=== PATIENT | male | born 2000 | race Caucasian/White ===

== ENCOUNTER 2022-03-13 21:35 | Emergency (ER) | payer BC, SELFPAY ==
[2022-03-13 21:37] VITALS: BP 121/71; PULSE 73; RESP 16; TEMP 36.4; O2SAT 100; BMI 22.4
[2022-03-13 21:41] VITALS: RESP 22; O2SAT 98; O2SAT 99
--- NOTE | 2022-03-13 21:42 | EKG12_ITS ---
Test Reason : SOB Blood Pressure : / mmHG Vent. Rate : 068 BPM Atrial Rate : 068 BPM P-R Int : 200 ms QRS Dur : 090 ms QT Int : 360 ms P-R-T Axes : 032 076 054 degrees QTc Int : 382 ms Normal sinus rhythm Normal ECG Confirmed by NAI GONZALEZ, EDDA ([id number]), social media editor CHEMO SIMS ([id number]) on 03/15/2022 8:27:41 AM Referred By: NESTOR Confirmed By:EDDA TRIMBLE MD
[2022-03-13 21:58] LABS: Absolute Lymphocyte Count 1.84 X10^3/uL (0.83-4.51); Absolute Neutrophil Count 3.2 X10^3/uL (2.0-7.7); Basophil# 0.01 X10^3/uL; Basophil% 0.2 % (0-1); Eosinophil# 0.17 X10^3/uL; Eosinophils% 2.9 % (0-5); Hematocrit 44.3 % (40-54); Hemoglobin 14.9 g/dL (13.0-16.5); Lymphocyte # 1.84 X10^3/ul (0.83-4.51); Lymphocyte % 30.9 % (19-41); Mean Corp Hgb Conc 33.6 g/dL (32-36); Mean Corpuscular Hgb 28.3 pg (27.0-32.0); Mean Corpuscular Volume 84.2 fL (80-94); Mean Platelet Vol. 8.7 fl (6.2-12.0); Monocyte# 0.66 X10^3/uL; Monocyte% 11.1 % (0-10); NRBC Flagged by Analyzer 0 % (0-5); Neutrophil # 3.22 X10^3/uL (2.7-7.7); Neutrophil % 54.1 % (47-70); Platelet Count 157 K/mm3 (150-450); RBC Distribution Width CV 12.1 % (11.6-14.6); RBC Distribution Width SD 36.8 fl (35.1-43.9); Red Blood Count 5.26 M/mm3 (4.6-6.2)
--- NOTE | 2022-03-13 22:00 | RAD_ITS ---
EXAM: XR CHEST, 1 VIEW CLINICAL INDICATION: SOB TECHNIQUE: Frontal view of the chest. This report was created using [employer] report generation technology. COMPARISON: None. FINDINGS: LUNGS AND PLEURAL SPACES: Unremarkable. No consolidation or edema. No pneumothorax. No effusion. HEART: Unremarkable. Cardiac silhouette not enlarged. MEDIASTINUM: Central airways and mediastinal contour are unremarkable. BONES/JOINTS: Old right clavicle fracture with ORIF. SOFT TISSUES: Unremarkable. RAD/Chest 1 View (Portable) IMPRESSION: No acute findings in the chest. Electronically Signed: Edgard Allison MD at 22:12 EDT ,
[2022-03-13 22:12] LABS: Anion Gap 4 (5-15); BUN 14 mg/dL (7-18); BUN/Creat Ratio 13.2 RATIO (10-20); Calcium,Total 9.2 mg/dL (8.5-10.1); Chloride 104 mmol/L (98-107); Creatinine, Serum 1.06 mg/dL (0.70-1.30); EST Glomerular Filtration Rate 91 mL/min (>60); Est Glom Filt Rate - Afr Amer 110 mL/min (>60); Estimated Creatinine Clearance 113.76 ml/min; Glucose 98 mg/dL (74-106); Potassium 4.1 mmol/L (3.5-5.1); Sodium Level 139 mmol/L (136-145)
[2022-03-13 22:28] VITALS: BP 119/74; PULSE 73; RESP 17; O2SAT 99
[2022-03-13 22:35] VITALS: O2SAT 100
[2022-03-13 23:52] VITALS: BP 124/65; PULSE 70; RESP 20; O2SAT 98
--- NOTE | 2022-03-13 23:53 | EDS_ITS ---
HPI History of Present Illness Chief Complaint: Shortness of Breath Informant: patient Onset/Context/Timing Onset: Weeks (2) Context: sudden, onset and activity on onset (Usually sitting or lying down) Timing: Intermittent Quality: Positive for - (Just cannot catch breath) Current Severity: Gone Maximum Severity: Moderate Worsened by: Lying flat (Sometimes) and other (Sometimes couple hours after meals) Relieved by: Nothing (Nothing in particular) Associated Symptoms Negative for cough Chest Pain: Positive for None Narrative Narrative: Patient with intermittent dyspnea for the last couple weeks. 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 He denies any cough, fevers, chest discomfort, palpitations, but he has had some right side pain with it sometimes but not always. Sometimes he lies down and has trouble breathing until he sits up and then he is fine, with no pain. When he has the discomfort he does not think it is necessarily pleuritic. The pain is not there right now, nor is he having any trouble breathing, but a little earlier he had the worst episode he has had in the past 2 weeks, he states he thought it was getting better and dissipating because he has not had an episode in about a week or so. PE Risk Factors: Positive for Recent travel (But after onset of symptoms and no travel prior to that); Negative for Cancer, OCP + Smoking + > 35, Prior DVT or PE, Recent immobilization or Recent surgery [facility] Medical History (Updated 03/14/22 @ 00:[address] Raza Valerio MD) Hernia Right clavicle fracture Tibia fracture Home Medications pantoprazole 40 mg tablet,delayed release 40 mg PO DAILY #14 tabs 03/14/22 [Rx Last Taken Unknown] Allergy/AdvReac Type Severity Reaction Status Date / Time No Known Allergies Allergy Verified 03/13/22 21:39 Surgical History (Updated 03/13/22 @ 23:[address] Raza Valerio MD) History of orthopedic surgery Social History Smoking Status: Light Smoker (<10/day) ROS ROS ED Constitutional Constitutional ED: Denies chills or fever(s) Eyes Eyes: Denies change in vision or diplopia ENT ENT ED: Denies rhinorrhea or sore throat Cardiovascular Cardiovascular: Reports orthopnea; Denies chest pain, leg edema or palpitations Respiratory/Chest Respiratory/Chest: Reports dyspnea and orthopnea; Denies cough Gastrointestinal Gastrointestinal: Reports abdominal pain and nausea; Denies diarrhea or vomiting Genitourinary Genitourinary ED: Denies dysuria or hematuria Musculoskeletal Musculoskeletal: Denies back pain or neck pain Integumentary Denies abscess or rash Neurologic Neurologic: Denies headache(s), paresthesias or weakness Psychiatric Psychiatric: Denies anxiety or suicidal thoughts EXAM Physical Exam Const Vital Signs: 03/13/22 21:37 03/13/22 21:41 03/13/22 22:28 Temperature 97.5 F L Temperature Source Temporal Pulse Rate 73 73 Respiratory Rate 16 22 H 17 Respiratory Effort Respiratory Depth Respiratory Pattern Blood Pressure 121/71 H 119/74 Blood Pressure Mean 87 89 Pulse Ox 100 98 99 Oxygen Delivery Method Room Air Room Air Room Air 03/13/22 21:41 03/13/22 22:35 03/13/22 23:52 Temperature Temperature Source Pulse Rate 70 Respiratory Rate 20 H Respiratory Effort Short of Breath Respiratory Depth Normal Respiratory Pattern Normal Blood Pressure 124/65 H Blood Pressure Mean 84 Pulse Ox 99 98 Oxygen Delivery Method Room Air Room Air Room Air Positive well nourished and well developed General Appearance ED: well developed and NAD HEENT Reports moist mucous membranes normocephalic and atraumatic Eyes PERRL and EOMs intact bilaterally Neck full ROM and supple Resp normal respiratory effort and clear to auscultation bilaterally Cardio regular rate, regular rhythm and no murmurs Rate: Negative for tachycardic GI non-tender and non-distended Auscultation: normoactive bowel sounds Palpation: soft Back/Spine no CVA tenderness General Back: other FROM Extremity normal to inspection General Extremety ED: Negative for edema, pulses abnormal or tenderness General Extremity: Negative for edema or pulses abnormal Neuro oriented x3, CN's II-XII intact bilaterally and no sensory deficits noted Sensorium / Orientation: awake and alert Motor Exam: strength 5/5 throughout Skin no rashes or lesions noted and no wounds MDM MDM MDM Narrative Medical decision making narrative: Patient was asymptomatic during his stay here and work-up. I did a bedside ultrasound of his gallbladder, it was contracted, and nontender with a negative sonographic Chang's. Also, his right kidney appears normal without any hydronephrosis. In further discussion with him, with the severe episode that he had tonight of this, he was driving on the way to get something to eat when he started feeling dyspneic and having some of this right upper quadrant/flank pain, it subsided enough that he felt okay to eat, and then after he got done eating he came here to the emergency department, and the discomfort subsided, and did not return. This explains why his gallbladder is contracted since he had just eaten, and it makes biliary colic much less likely since it is contracted without any obvious shadowing stones and he has no pain or tenderness there. Given all of this, in addition to negative liver enzymes, lipase, D- dimer, and on my interpretation his 1-view chest x-ray is normal showing no effusion or any other acute abnormality, with radiology in agreement, and no symptoms of dysrhythmias, I am comfortable discharging him home and we will try prescription for 2 weeks of a PPI given his history of triggering this with lying down. Lab Data Attestation: I reviewed the patient's lab results. Labs: Laboratory Results - last 24 hr 03/13/22 03/13/22 03/13/22 21:50 21:50 23:58 WBC 6.0 RBC 5.26 Hgb 14.9 Hct 44.3 MCV 84.2 MCH 28.3 MCHC 33.6 RDW Std Deviation 36.8 RDW Coeff of Guillermina 12.1 Plt Count 157 MPV 8.7 Immature Gran % (Auto) 0.800 Neut % (Auto) 54.1 Lymph % (Auto) 30.9 Darke % (Auto) 11.1 H Eos % (Auto) 2.9 Baso % (Auto) 0.2 Absolute Neuts (auto) 3.2 Absolute Lymphs (auto) 1.84 Nucleated RBC % 0 D-Dimer Quant (PE/DVT) Sodium 139 Potassium 4.1 Chloride 104 Carbon Dioxide 31.0 Anion Gap 4 L BUN 14 Creatinine 1.06 Estim Creat Clear Calc 113.76 Est GFR (MDRD) Af Amer 110 Est GFR (MDRD) Non-Af 91 BUN/Creatinine Ratio 13.2 Glucose 98 Calcium 9.2 Total Bilirubin Direct Bilirubin AST ALT Alkaline Phosphatase Total Protein Albumin Globulin Lipase 155 03/13/22 03/13/22 23:58 23:58 WBC RBC Hgb Hct MCV MCH MCHC RDW Std Deviation RDW Coeff of Guillermina Plt Count MPV Immature Gran % (Auto) Neut % (Auto) Lymph % (Auto) Darke % (Auto) Eos % (Auto) Baso % (Auto) Absolute Neuts (auto) Absolute Lymphs (auto) Nucleated RBC % D-Dimer Quant (PE/DVT) < 0.27 L Sodium Potassium Chloride Carbon Dioxide Anion Gap BUN Creatinine Estim Creat Clear Calc Est GFR (MDRD) Af Amer Est GFR (MDRD) Non-Af BUN/Creatinine Ratio Glucose Calcium Total Bilirubin 0.60 Direct Bilirubin 0.19 AST 22 ALT 36 Alkaline Phosphatase 78 Total Protein 6.5 Albumin 3.8 Globulin 2.7 Lipase Radiography Chest X-Ray - ED: 1 View, Read by ED Physician, No Acute Disease and No Infiltrates Diagnostic Testing: Clinical Impression(s) from Imaging Studies Chest X-Ray 03/13/22 22:00 IMPRESSION: No acute findings in the chest. Electronically Signed: Edgard Allison MD at 22:12 EDT , Rhythm Strip Rhythm Strip: Sinus Rhythm Rate: 65 Ectopy: None EKG Initial EKG: Attestation: I personally reviewed and interpreted this EKG as follows: Interpretation: Sinus Rhythm and No Acute Injury Pattern Comments: Normal EKG, rate 68. Precordial T waves are peaked, likely due to asthenic build. Discharge Plan Triage Chief Complaint: Shortness of Breath ED Provider: Raza Valerio Dx/Rx/DC Orders Clinical Impression: Dyspnea, unspecified, Right flank pain, Orthopnea Instructions: ED Dyspnea Prescriptions: New pantoprazole 40 mg tablet,delayed release (DR/EC) 40 mg PO DAILY Qty: 14 0RF Primary Care Provider: Care Physician,No Primary Referrals: Care Physician,No Primary [Primary Care Provider] - Doctor,Your [STAFF PHYSICIAN] - 1 Week if not improving Disposition Disposition: Home, Self Care
[2022-03-14 00:19] LABS: Lipase 155 U/L (73-393)
[2022-03-14 00:26] LABS: AST(SGOT) 22 U/L (15-37); Alanine Aminotransfer ALT/SGPT 36 U/L (16-61); Albumin, Serum 3.8 g/dL (3.2-5.0); Alkaline Phosphatase 78 U/L (45-117); Bilirubin, Direct 0.19 mg/dL (0.00-0.30); Globulin 2.7 g/dL (2.2-4.2); Protein, Total 6.5 g/dL (6.4-8.2)
[2022-03-14 00:35] LABS: D-Dimer Quantitative (DVT/PE) < 0.27 FEU/ug/m (0.27-0.49)
[2022-03-14] MEDS: Pantoprazole Sodium 40 MG Tablet PO (00:44)
[2022-03-14 00:50] VITALS: BP 124/65; PULSE 70; RESP 15; O2SAT 98
== END 2022-03-14 00:51 | disposition home or self-care (01) ==
PROVIDERS: Emergency Provider Emergency Medicine; Visit Provider Emergency Medicine
DX: R06.02 Shortness of breath (principal); R06.01 Orthopnea; F17.200 Nicotine dependence, unspecified, uncomplicated; R06.00 Dyspnea, unspecified
CPT/HCPCS: 71045; 80048; 80076; 83690; 85025; 85379; 87811; 93005; 94760; 99284; A4216